=== PATIENT | female | born 1990 | race Caucasian/White ===

== ENCOUNTER 2018-07-13 05:55 | Emergency (ER) | payer OTHER, SELFPAY ==
[2018-07-13 06:00] VITALS: BP 124/75; PULSE 86; RESP 24; TEMP 36; O2SAT 100; BMI 26.3
--- NOTE | 2018-07-13 06:30 | ED.DCSUM_ITS ---
- ER Visit Summary Date of Service: 07/13/18 Chief Complaint: Vomiting and diarrhea History of Present Illness: The patient is a 27 F states for the past several days she has had low-grade temps, cough with sputum, shortness of breath, vomiting, abdominal cramps, and diarrhea. She was seen at urgent care and started on doxycycline, prednisone, and Tessalon Perles. Patient states that she continues to have vomiting and diarrhea and would like those concerns addressed. Patient denies any rashes. She has a history of asthma. Physical Examination: Afebrile vital signs are stable Gen: Well-nourished well-developed Head: Normocephalic atraumatic Eyes: Perrl EOMI ENT: TMs clear no rhinorrhea moist mucous membranes Neck: Supple no lymphadenopathy no JVD nontender CVS: Regular rate rhythm no murmurs normal S1-S2 Respiratory: Scattered wheezes bilaterally chest nontender Abdomen: Soft mild diffuse tenderness nondistended normal bowel sounds no masses Back: Nontender Extremity: Nontender no edema Skin: Normal color no rash Neuro: alert orientated ?3 CN II-XII intact normal strength sensation reflexes gait cerebellar Psych: Anxious Emergency Department Course and Treatment: Patient received a dose of Bentyl. Attempted to give the patient oral Zofran and she vomited as soon as the medicine touched her mouth. Patient received Zofran through the IV. Patient will be discharged home with Zofran and Bentyl with instructions for Imodium as needed she is to continue her antibiotics and steroids. Impression: 1. Gastroenteritis 2. Asthmatic bronchitis with bronchospasm This note was generated with [employer] dictation software. It may contain incorrect words, spelling, and punctuation that were not noted in review of the chart prior to signing ED Disposition - Plan for ED Patient: Disposition: Home or Assisted Living Chief Complaint: Nausea/Vomiting/Diarrhea Instructions: ED Gastroenteritis Viral Prescriptions: Ondansetron [Zofran Odt] 4 mg PO Q6H PRN PRN #20 tab PRN Reason: Nausea Dicyclomine HCl [Bentyl] 20 mg PO TIDAC PRN #30 cap PRN Reason: abdominal cramps Referrals: Joe Booker MD [Primary Care Provider] - 3-5 Days if not improving
[2018-07-13] MEDS: Dicyclomine 20 MG/2 ML Vial IM (06:35)
[2018-07-13] MEDS: Ondansetron ODT 4 MG Tablet 8 MG PO (06:35)
--- NOTE | 2018-07-13 06:40 | ED.RN ---
PATIENT VOMITED SOON SHE WAS GIVEN THE ORAL ZOFRAN. DR. SCHMIDT MADE AWARE AND HE SAID JUST TO GIVE HER THE BENTYL.
[2018-07-13] MEDS: Ondansetron 4 MG/2 ML Vial IV (06:56)
[2018-07-13 08:27] VITALS: BP 117/83; PULSE 87; RESP 20; O2SAT 100
== END 2018-07-13 08:27 | disposition home or self-care (01) ==
PROVIDERS: Emergency Provider Emergency Medicine; Family Provider Family Medicine; PCP Family Medicine
DX: K52.9 Noninfective gastroenteritis and colitis, unspecified (principal); J45.909 Unspecified asthma, uncomplicated; J98.01 Acute bronchospasm; M79.7 Fibromyalgia; F41.9 Anxiety disorder, unspecified; Z79.899 Other long term (current) drug therapy
CPT/HCPCS: 96372; 96374; 99283; A4216; J2405